=== PATIENT | male | born 1990 | race Two or more races ===

== ENCOUNTER 2023-04-25 08:01 | Emergency (ER) | payer MEDICAID ==
[~2023-04-25] VITALS: Ht 172.7 cm; Wt 55.3 kg
[2023-04-25] MEDS ORDERED: diphenhydrAMINE HCL 50 MG CAPSULE ONE (08:22)
[2023-04-25] MEDS ORDERED: predniSONE 20 MG TABLET ONE (08:22)
[2023-04-25] MEDS ORDERED: FAMOTIDINE (20 MG) 20 MG TABLET ONE ×2 (08:23→08:27)
[2023-04-25] MEDS ORDERED: EPINEPHRINE (1:1000) 1 MG/ML AMPUL ONE (08:24)
[2023-04-25] MEDS ORDERED: ACETAMINOPHEN ES 500 MG TABLET PO ONE (08:30)
[2023-04-25] MEDS ORDERED: predniSONE 10 MG TABLET PO ONE (08:30)
[2023-04-25] MEDS ORDERED: FAMOTIDINE (20 MG) 20 MG TABLET PO ONE (08:30)
[2023-04-25] MEDS ORDERED: EPINEPHRINE (1:1000) MDV 30 MG/30ML VIAL SUBCUT ONE (08:30)
[2023-04-25] MEDS ORDERED: diphenhydrAMINE HCL 50 MG CAPSULE PO ONE (08:30)
[2023-04-25] MEDS ORDERED: ACETAMINOPHEN ES 500 MG TABLET ONE (08:39)
[2023-04-25] MEDS ORDERED: PRED50TA PO (09:12)
[2023-04-25] MEDS ORDERED: EPIN0.3P3 IM (09:12)
[2023-04-25] MEDS ORDERED: CEPH500C2 PO (09:12)
[2023-04-25] MEDS ORDERED: CETI-108 PO (09:12)
[2023-04-25 09:31] VITALS: BP 127/74; TEMP 97.9; O2SAT 100
== END 2023-04-25 09:32 | disposition home or self-care (01) ==
LOC: ER 08:07
DX: R60.9 Edema, unspecified (principal); T36.4X5A Adverse effect of tetracyclines, initial encounter; Z88.8 Allergy status to other drugs, medicaments and biological substances; Y92.89 Other specified places as the place of occurrence of the external cause
CPT/HCPCS: 99284; 96372; Q0163; J0171; J7512